=== PATIENT | female | born 1985 | race Caucasian/White ===

== ENCOUNTER 2017-10-10 21:14 | Emergency (ER) | payer BC ==
[~2017-10-10] VITALS: Ht 167.6 cm; Wt 61.2 kg
[2017-10-10 21:27] VITALS: BP 126/89
[2017-10-11] MEDS ORDERED: CEFTRIAXONE 500 MG VIAL IM ONE (02:30)
[2017-10-11] MEDS ORDERED: AZITHROMYCIN 250 MG TABLET PO ONE (02:30)
[2017-10-11] MEDS ORDERED: METRONIDAZOLE 500 MG TABLET PO ONE (02:30)
[2017-10-11 03:10] LABS: APPEARANCE,URINE SL CLOUDY (CLEAR); BILIRUBIN,URINE NEGATIVE (NEGATIVE); BLOOD, URINE NEGATIVE Ery/uL (NEGATIVE); COLOR,URINE YELLOW (YELLOW); KETONES,URINE NEGATIVE (NEGATIVE); LEUKOCYTE ESTERASE ,URINE 2+ (NEGATIVE); NITRITE, URINE NEGATIVE (NEGATIVE); PH,URINE 7.5 (5.0-8.0); PROTEIN,URINE NEGATIVE (NEGATIVE); UGLUCOSE NEGATIVE (NEGATIVE); UROBILINOGEN,URINE 0.2 EU/dL (0.2)
[2017-10-11] MEDS ORDERED: AZITHROMYCIN 250 MG TABLET ONE (03:13)
[2017-10-11] MEDS ORDERED: LIDOCAINE 1% INJ 50 ML MDV IJ ONE (03:13)
[2017-10-11] MEDS ORDERED: CEFTRIAXONE 500 MG VIAL ONE (03:13)
[2017-10-11] MEDS ORDERED: METRONIDAZOLE 500 MG TABLET ONE (03:14)
[2017-10-11 03:26] LABS: BACTERIA,URINE Few /HPF (None Seen); RBC,URINE 0-2 /HPF (0-2); SQUAMOUS EPITHELIAL CELL,UR Few /HPF (None Seen)
== END 2017-10-11 03:30 | disposition home or self-care (01) ==
LOC: ER 21:20
DX: N39.0 Urinary tract infection, site not specified (principal); A64 Unspecified sexually transmitted disease; Z76.0 Encounter for issue of repeat prescription; F43.10 Post-traumatic stress disorder, unspecified; F31.9 Bipolar disorder, unspecified; F41.9 Anxiety disorder, unspecified; Z88.8 Allergy status to other drugs, medicaments and biological substances
CPT/HCPCS: 81000-TC; 84703-TC; 87086-TC; 87491; 87591; A4606; J0696; J3490; Z7610